=== PATIENT | female | born 1970 | race Caucasian/White ===

== ENCOUNTER → 2018-07-13 | Outpatient (REF) | payer BC ==
[~2018-07-13] MED LIST: ALIG4CAP PO; DRIS50003 PO; GABA-843 PO; MELO15TA28 PO; MELO7.5T7 PO; PHEN-239 PO; SUMA100T2 PO; SYNT150T PO; SYNT175T2 PO; TIZA-208 PO; VICT18IN SC; ZANA4TAB PO
[2018-07-13 14:58] LABS: RHEUMATOID FACTOR QUANT < 10.0 IU/ML (<15.0); TOTAL PROTEIN 7.4 GM/DL (6.4-8.2)
[2018-07-13 15:06] LABS: FOLATE 23.6 NG/ML (>5.4); VITAMIN B12 LEVEL 477 PG/ML (247-911)
[2018-07-13 15:13] LABS: HEMOGLOBIN A1c 6.9 %
[2018-07-17 14:44] LABS: ALBUMIN 4.28 GM/DL (3.29-5.55); ALBUMIN % 57.9 % (55.8-66.1); ALPHA-1-GLOBULIN % 4.8 % (2.9-4.9); ALPHA-1-GLOBULINS 0.36 GM/DL (0.17-0.41); ALPHA-2-GLOBULINS 0.87 GM/DL (0.42-0.99); ALPHA-2-GLOBULINS % 11.8 % (7.1-11.8); BETA-1-GLOBULINS 0.56 GM/DL (0.28-0.60); BETA-1-GLOBULINS % 7.6 % (4.7-7.2); BETA-2-GLOBULINS % 5.4 % (3.2-6.5); GAMMA GLOBULIN % 12.5 % (11.1-18.8); GAMMA GLOBULINS 0.93 GM/DL (0.65-1.58)
[2018-07-18 08:50] LABS: ANTINUCLEAR ANTIBODIES DIRECT Negative (Negative); CERULOPLASMIN 42.5 mg/dL (19.0-39.0); COPPER PLASMA 163 ug/dL (72-166); LEAD BLOOD ADULT <1 ug/dL (0-4); Lyme Disease IgG/IgM Antibodie <0.91 ISR (0.00-0.90); Lyme Disease IgM Ab Quantitati <0.80 index (0.00-0.79); MERCURY LEVEL None Detected ug/L (0.0-14.9); VITAMIN B1 LEVEL WHOLE BLOOD 133.2 nmol/L (66.5-200.0); VITAMIN B6,PYRIDOXAL PHOSPHATE 8.9 ug/L (2.0-32.8); VITAMIN E(ALPHA TOCOPHEROL) 13.2 mg/L (7.0-25.1); VITAMIN E(GAMMA TOCOPHEROL) 2.6 mg/L (0.5-5.5)
== END ==
LOC: M LABNEURO 10:14
PROVIDERS: ATTEND Psychiatry & Neurology Neurology
DX: G62.9 Polyneuropathy, unspecified (principal)

== ENCOUNTER → 2022-05-18 | Outpatient (CLI) | payer BC ==
[~2022-05-18] MED LIST changes: +GABA-282 PO; -GABA-843 PO; -TIZA-208 PO; +TIZA10TA PO
== END ==
LOC: M PLAIMG 13:46
PROVIDERS: ATTEND Internal Medicine Rheumatology
DX: R79.82 Elevated C-reactive protein (CRP) (principal)

== ENCOUNTER → 2022-05-18 | Outpatient (REF) | payer BC ==
[2022-05-18 17:33] LABS: BASO # 0.1 10^3/uL (0.0-0.2); BASO % 0.7 % (0.0-1.0); CPK CREATINE PHOSPHOKINASE 65 U/L (34-145); EOS # 0.1 10^3/uL (0.0-0.5); EOS % 1.6 % (0.0-3.0); HEMOGLOBIN 12.7 g/dl (12.0-15.5); LYMPH # 2.6 10^3/uL (1.5-5.0); MEAN CORPUSCULAR VOLUME 83.8 fl (80.0-96.0); MONO # 0.4 10^3/uL (0.0-0.8); MONO % 4.5 % (2.0-8.0); NEUTROPHILS # 5.5 10^3/uL (1.5-8.5); PLATELET COUNT, AUTOMATED 299 10^3/uL (150-450); RED BLOOD COUNT 4.89 10^6/uL (4.00-5.40); WHITE BLOOD COUNT 8.7 10^3/uL (4.0-10.0)
[2022-05-18 17:34] LABS: LDH LACTATE DEHYDROGENASE 203 U/L (120-246)
[2022-05-18 17:35] LABS: ALBUMIN 3.8 G/DL (3.2-5.2); ALKALINE PHOSPHATASE 129 U/L (46-116); ALT/SGPT 46 U/L (7.0-40); AST/SGOT 56 U/L (<34); BILIRUBIN,TOTAL 0.4 MG/DL (0.3-1.2); BLOOD UREA NITROGEN 14 MG/DL (9-23); CALCIUM LEVEL 9.4 MG/DL (8.5-10.1); CARBON DIOXIDE LEVEL 31 MMOL/L (20-31); CHLORIDE LEVEL 104 MMOL/L (98-107); GLOMERULAR FILTRATION RATE > 60.0 (>51); GLUCOSE, FASTING 127 MG/DL (60-100); POTASSIUM SERUM 4.1 MMOL/L (3.5-5.1); SODIUM LEVEL 143 MMOL/L (136-145); TOTAL PROTEIN 6.7 G/DL (5.7-8.2)
[2022-05-18 18:32] LABS: ERYTHROCYTE SEDIMENTATION RATE 41 mm/hr (0-30)
== END ==
LOC: M SFHCRHEU 13:10
PROVIDERS: ATTEND Internal Medicine Rheumatology
DX: R79.82 Elevated C-reactive protein (CRP) (principal); M35.00 Sjogren syndrome, unspecified; M35.3 Polymyalgia rheumatica

== ENCOUNTER → 2022-11-19 | Outpatient (REF) | payer BC ==
[2022-11-19 12:39] LABS: BASO % 0.5 % (0.0-1.0); EOS # 0.2 10^3/uL (0.0-0.5); EOS % 2.5 % (0.0-3.0); HEMATOCRIT 41.7 % (36.0-47.0); HEMOGLOBIN 12.9 g/dl (12.0-15.5); LYMPH # 2.4 10^3/uL (1.5-5.0); LYMPH % 27.6 % (24.0-44.0); MEAN CORPUSCULAR HGB CONC 30.9 g/dl (32.0-36.5); MEAN CORPUSCULAR VOLUME 80.8 fl (80.0-96.0); MONO # 0.4 10^3/uL (0.0-0.8); MONO % 4.3 % (2.0-8.0); NEUTROPHILS # 5.7 10^3/uL (1.5-8.5); NEUTROPHILS % 64.6 % (36.0-66.0); PLATELET COUNT, AUTOMATED 306 10^3/uL (150-450); RED BLOOD COUNT 5.16 10^6/uL (4.00-5.40); WHITE BLOOD COUNT 8.8 10^3/uL (4.0-10.0)
[2022-11-19 13:06] LABS: ALBUMIN 3.8 G/DL (3.2-5.2); ALKALINE PHOSPHATASE 127 U/L (46-116); ALT/SGPT 23 U/L (7.0-40); AST/SGOT 12 U/L (<34); BILIRUBIN,TOTAL 0.5 MG/DL (0.3-1.2); BLOOD UREA NITROGEN 13 MG/DL (9-23); CALCIUM LEVEL 9.1 MG/DL (8.5-10.1); CARBON DIOXIDE LEVEL 28 MMOL/L (20-31); CHLORIDE LEVEL 104 MMOL/L (98-107); CREATININE FOR GFR 0.53 MG/DL (0.55-1.30); GLOMERULAR FILTRATION RATE > 60.0 (>51); GLUCOSE, FASTING 141 MG/DL (60-100); POTASSIUM SERUM 4.1 MMOL/L (3.5-5.1); SODIUM LEVEL 141 MMOL/L (136-145); TOTAL PROTEIN 6.6 G/DL (5.7-8.2)
[2022-11-19 13:32] LABS: ERYTHROCYTE SEDIMENTATION RATE 36 mm/hr (0-30)
== END ==
LOC: M SFHCRHEU 10:47
PROVIDERS: ATTEND Internal Medicine Rheumatology
DX: R79.82 Elevated C-reactive protein (CRP) (principal); M35.00 Sjogren syndrome, unspecified; M35.3 Polymyalgia rheumatica